=== PATIENT | male | born 1955 | race Caucasian/White ===

== ENCOUNTER 2025-04-01 00:55 | Inpatient (IN) | payer OTHER, SELFPAY ==
[2025-03-31 20:06] VITALS: BP 146/93
[2025-03-31 20:37] LABS: % Basophils 0.3 % (0-2); % Eosinophils 2.6 % (0-6); % Immature Granulocytes 0.5 % (0-0.5); % Lymphocytes 8.9 % (20.5-51.1); % Monocytes 9.4 % (1.7-9.3); % Neutrophils 78.3 % (42.2-75.2); Absolute Eosinophils 0.2 10^3/uL (0-0.7); Absolute Lymphocytes 0.6 10^3/uL (1.2-3.4); Absolute Monocytes 0.6 10^3/uL (0.1-0.6); Absolute Neutrophils 5.1 10^3/uL (1.4-6.5); Hemoglobin 15.3 g/dL (13.0-18.0); Mean Corp Hgb Conc. 36.4 g/dL (33.0-37.0); Mean Corpuscular Hgb 32.3 pg (27.0-31.0); Mean Corpuscular Volume 88.6 fL (80.0-94.0); Mean Platelet Volume 9.8 fL (7.4-10.4); Nucleated Red Blood Cells % 0 % (-); Platelet Count 182 10^3/uL (130-400); Red Blood Cell Count 4.74 10^6/uL (4.70-6.10); Red Cell Dist. Width 12.6 % (11.5-14.5); White Blood Cell Count 6.5 10^3/uL (4.8-10.8)
[2025-03-31 20:54] LABS: COVID-19 Antigen Negative (Negative)
[2025-03-31 20:58] LABS: ALT (SGPT) 29 U/L (0-50); AST (SGOT) 30 U/L (17-59); Albumin 4.6 g/dl (3.5-5.0); Alkaline Phosphatase 54 U/L (38-126); Blood Urea Nitrogen 15 mg/dl (9-20); Calcium 9.4 mg/dl (8.4-10.2); Carbon Dioxide 25 mmol/L (22-30); Chloride 102 mmol/L (98-107); Glucose 129 mg/dl (70-99); Potassium 3.9 mmol/L (3.5-5.1); Sodium 137 mmol/L (135-145); Total Bilirubin 1.4 mg/dl (0.2-1.3); Total Protein 7.2 g/dl (6.3-8.2); eGFR > 60.00
[2025-03-31 21:01] LABS: Troponin I 0.014 ng/ml
[2025-03-31 21:38] VITALS: BP 161/88
[2025-03-31 21:57] VITALS: BMI 31.7
[2025-03-31 22:30] VITALS: BP 161/75
--- NOTE | 2025-03-31 22:32 | ED.CVA ---
History of Present Illness
General
Chief Complaint: CVA/TIA Symptoms
Source: patient and family
Exam Limitations: none
Time Seen by Provider: 03/31/25 22:32
Nursing documentation reviewed up to this point in time: agreed with
Onset of Stroke Symptoms
Onset of symptoms known: No
Time pt last seen normal is known: No
History of Present Illness
History of Present Illness:
Patient to ED for eval after an episode of gait dysfunction and slurred speech this afternoon. States he was at his mothers when symptoms started. States he felt like he was walking as if he were drunk - denies alcohol intake. He then
started walking backwards instead of forwards and could not stop self. He eventually hit a wall and stopped. SOn then reports slurred speech. Symptoms lasted for 'just a few minutes' and then resolved. Brought to ED by family for eval. No prior
history of same.
Past History
Past History
ED Past Medical History: GERD, HTN and Hypercholesterolemia
ED Past Surgical History: Cardiac (aortic valve)
Review of Systems
Review of Systems
Allergies reviewed?: Yes
All Other Systems: ROS reviewed and negative except as documented in HPI and ROS
Constitutional: Reports no symptoms
EENT: Reports no symptoms
Respiratory: Reports no symptoms
Cardiac: Reports no symptoms
ABD/GI: Reports no symptoms
: Reports no symptoms
Musculoskeletal: Reports no symptoms
Skin: Reports no symptoms
Neurological: Reports other (episode of uncoordinated forward gait followed uncontrolled episode of walking backwards, slurred speech.)
Psychiatric: Reports no symptoms
Phy Exam
General Physical Exam
General Presentation: well appearing and no apparent distress
General age: appears stated age
General Skin: warm and dry
General Habitus: normal
General Mental: alert
General Hydration: appears well hydrated
Cardiovascular Exam
Cardiovascular Exam: regular rate/rhythm and no edema
Pulmonary Exam
Pulmonary Exam: lungs clear, no respiratory distress and chest non tender
Neurological Exam
Neurological Exam: alert, oriented x3 and CN II-XII intact
NIH Stroke Score
Level of Consciousness: 0 - Alert
LOC questions: 0-Answers both correctly
LOC Commands: 0-Performs both correctly
Best Gaze: 0-Normal
Visual Carranza: 0=Normal, no visual loss
Facial palsy: 0=Normal, symmetrical
Motor - Right Arm: 0=No drift 10 seconds
Motor - Left Arm: 0=No drift 10 seconds
Motor - Right Le-No drift 5 seconds
Motor - Left Le-No drift 5 seconds
Limb Ataxia: 0-Absent
Sensation: 0-Normal
Best Language: 0-No aphasia
Dysarthria: 0-Normal
Extinction and Inattention: 0-No abnormality
Total Score:: 0
Musculoskeletal Exam
Musculoskeletal Exam: full ROM and neuro vasc intact
Skin Exam
Skin Exam: normal color, warm/dry and no rash
Psychiatric Exam
Psychiatric Exam: normal mood/affect
Course
Orders/Labs/Results
Orders:
Orders
03/31/25 20:10
Electrocardiogram (*1) Urgent
Reason for Study: Vertigo / Dizzy
EKG- Treatment ONCE
03/31/25 20:23
COVID-19 Antigen Urgent
Source: Nasal Swab
Complete Blood Count/With Diff Urgent
Comprehensive Metabolic Panel Urgent
PT/INR [Prothrombin Time] Urgent
Is patient on Coumadin/Warfarin?: No
Comment: [email or web address]
Troponin I Urgent
Influenza A+B Rapid Molecular Urgent
GENE Source: Nasal Swab
Specimen Description:
03/31/25 20:[address] [CT Head W/o Iv Contrast] Urgent
Comment:
Reason For Exam: balance issue
03/31/25 23:00
Flush (0.9% Sodium Chloride) [Flush (Nss)] See Dose Instructions IV PER PROTOCOL
03/31/25 23:01
NEUROLOGY CONSULT Urgent
Consulting Provider: Alonzo Alfaro
Was physician already notified: Yes
04/01/25 00:10
CXR2 [CR Chest - 2 Views ] Urgent
Comment:
Reason For Exam: Fever, Cough
04/01/25 00:18
Warfarin [Coumadin] 10 mg PO NOW STA
04/01/25 00:30
Blood Culture Q30M
GENE Source: Blood/Venous
Specimen Description:
04/01/25 00:31
Acetaminophen [Tylenol] 650 mg PO NOW STA
04/01/25 00:32
0.9% Sodium Chloride 1000 ml [Nss] 1,000 ml IV BOLUS
04/01/25 00:36
Admit/Transfer Patient As Directed
Co-Sign Provider:
Level of Care: Inpatient admission
Assign to:: Telemetry
Physician / Group: Deven
Diagnosis: Pneumonia, Ataxia
Reason for Telemetry: Arrhythmia
Date to Stop Telemetry: 04/04/25
Time to Stop Telemetry: 11:00
Reason for Hospitalization: Pneumonia, Ataxia
Expected length of stay greater than two midnights?: Yes
ELOS- Estimated Length of Stay in days: 3
I certify the patient meets the requirements for IP care: Yes
CefTRIAXone [Rocephin] 1,000 mg IV NOW STA
Doxycycline [Vibramycin] 100 mg PO NOW STA
04/01/25 00:37
PRN Pain Medication Management As Directed
May give lesser potent ordered pain med per pt: Yes
preference::
Protocol:: Medication orders for pain may be administered in a
manner that supports deferring to patient preference
when the pt is:
- Requesting an ordered lesser potent pain medication.
Least to most potent pain medications are defined
as: acetaminophen < NSAID < tramadol < opioids
(morphine, oxycodone, hydromorphone).
- Requesting a lesser dose of the same medication IF
ORDERED.
- Requesting a less intrusive route of administration
if both routes are prescribed by the provider (PO <
IV).
04/01/25 00:38
Code Status As Directed
Resuscitation Status: Full Code
Sterile Water [Sterile Water For Injection] 10 ml IV NOW STA
04/01/25 00:39
Lactic Acid Urgent
Urinalysis Reflex To Culture Routine
Date Specimen was Collected: 04/01/25
Time Specimen was Collected: 00:30
Blood Culture Q30M
GENE Source: Blood/Venous
Specimen Description:
04/04/25 11:00
DC Protocol for Telemetry ONCE
Abnormal Lab Results
03/31/25
20:23
MCH 32.3 H pg
(27.0-31.0)
Absolute Lymphs (auto) 0.6 L 10^3/uL
(1.2-3.4)
Neutrophils % 78.3 H %
(42.2-75.2)
Lymphocytes % 8.9 L %
(20.5-51.1)
Monocytes % 9.4 H %
(1.7-9.3)
PT 21.0 H Sec
(11.4-14.6)
Glucose 129 H mg/dl
(70-99)
Total Bilirubin 1.4 H mg/dl
(0.2-1.3)
03/31/25 20:23
03/31/25 20:23
Vital Signs
Initial and Last Documented VS:
Initial Vital Signs
Temp Pulse Resp BP Pulse Ox
100.3 F 55 16 146/93 94
03/31/25 20:06 03/31/25 20:06 03/31/25 20:06 03/31/25 20:06 03/31/25 20:06
Last Documented Vital Signs
Temp Pulse Resp BP Pulse Ox
101.3 F H 93 23 147/79 94
04/01/25 00:29 04/01/25 00:15 04/01/25 00:15 04/01/25 00:00 04/01/25 00:15
*Radiology
Radiology exam reviewed: radiology read reviewed
*Pulse Oximetry
Patient hypoxic: no
*Critical Care Note
Total Time (30-74mins, 75-104mins- exclusive of procedures): Not Applicable
ED Attending Note
-
Portions of this chart may have been created with voice recognition software.� Occasional wrong word or��sound alike� substitutions may have occurred due to the inherent limitations of voice recognition software.
Discharge Plan
Departure
Patient Disposition: Admit
Date of Disposition: 03/31/25
Time of Disposition: 23:00
Presentation/result/management discussed w/ accepting MD/DO: Hospitalist
Patient with high blood pressure during this ER visit?: No
Condition: Fair
Covid-19: Not Applicable
Discharge Problem:
TIA (transient ischemic attack)
Prescriptions:
No Action
carvedilol 3.125 mg Tablet
3.125 mg PO BID
losartan-hydrochlorothiazide 100-25 mg Tablet
1 tab PO DAILY
pantoprazole [Protonix] 40 mg Tablet,Delayed Release (Dr/Ec)
40 mg PO DAILY
warfarin 5 mg Tablet
10 mg PO DAILY
Rx Instructions:
Sundays, Tuesdays, take 2 tablets that equal 10mg.
Mondays, Wednesdays, Fridays, and Saturdays take 1.5 tablets that equals 7.5mg
finasteride 5 mg Tablet
5 mg PO DAILY
ezetimibe 10 mg Tablet
10 mg PO DAILY
silodosin 8 mg Capsule
8 mg PO DAILY
omega 0-mno-jyh-fish oil [Fish Oil] 300-1,000 mg Capsule
1 cap PO DAILY
Interventions
Interventions:
*Risk Screen - Suicide Last Done: 03/31/25 21:58
*General Assessment Last Done: 03/31/25 21:58
*Neglect/Abuse Screening Last Done: 03/31/25 21:58
*ED COVID-19 Vaccine History Last Done: 03/31/25 21:58
ED- Pulmonary Assessment Last Done: 03/31/25 22:05
ED- Neurological Assessment Last Done: 03/31/25 23:00
ED- Cardiac Assessment Last Done: 03/31/25 22:05
ED Swallowing Screen Last Done: 03/31/25 23:54
Discharge Date and Time
Print Language: TAJIK
[2025-03-31 23:00] VITALS: BP 152/74
[2025-04-01] VITALS (13 sets, daily range): BP systolic 110–147; BP diastolic 61–85; PULSE 48–100; BMI 30.9; BMI 30.6
--- NOTE | 2025-04-01 00:19 | HPS.HSE ---
Family Physician
-
Family Physician: NOT KNOW UNKNOWN - PT DOES
Chief Complaint
-
Ataxia
History of Present Illness
Patient is a 69y M with PMH significant for hypertension, mechanical AVR and spinal stenosis who presents to ED complaining of ataxia. History obtained from patient and family at the bedside. Patient states that he was at his mother's
this afternoon when he noted that he was unsteady on his feet. He was stumbling around but did not fall. At the medical reception, he states that he lost his balance and ended up 'walking backwards' until he struck a wall and slid down. He denies
striking his head through family members believe that he may have. No LOC. Patient was given some water and crackers. He attended dinner following that and ate well.
After dinner, patient was noted to still be quite unsteady on his feet. Family also appreciated some slurring of his speech at that point.
He was brought to the ED for further evaluation.
On further discussion, ataxia / unsteadiness was noted by family as early as 9 AM today - though not much was thought about it at the time.
In the ED, family feels that his speech is back to baseline.
Patient denies any prior history of NC, CVA, etc.
Patient is noted to have cough during exam. He states that he has had dry, non-productive cough for the past 2 days or so. No fever / chills. No dyspnea.
Medical History
Past Medical History
Past Medical History: Reports Other
Additional Past Medical History:
Mechanical AVR
Hypertension
Dyslipidemia
Borderline DM-II
History of GI Bleeding
KIANNA - Intolerant of CPAP
Cervical / Lumbar Spinal Stenosis
BPH
Past Surgical History: Reports Other
Additional Past Surgical History:
Left Carpal Tunnel Release (3 weeks ago)
Right Foot ORIF
Septoplasty
Hernia Repair
Mechanical AVR
Social History
Tobacco: Non-smoker
Alcohol: None
Drug: None
Family History
Family History: Other (Father: CAD Brother x 4: CAD)
Allergies / Home Medications
Allergies reflects when Allergies were last updated in [facility].
Home Medications with original date entered in [facility]
Allergy/Medication List:
Allergies
Allergy/AdvReac Type Severity Reaction Status Date / Time
lisinopril Allergy Unknown Verified 03/31/25 20:13
Home Medications
carvedilol 3.125 mg tablet 3.125 mg PO BID 03/31/25
ezetimibe 10 mg tablet 10 mg PO DAILY 03/31/25
finasteride 5 mg tablet 5 mg PO DAILY 03/31/25
losartan 100 mg-hydrochlorothiazide 25 mg tablet 1 tab PO DAILY 03/31/25
omega 9-ijj-pcy-fish oil 300 mg-1,000 mg capsule (Fish Oil) 1 cap PO DAILY 03/31/25
pantoprazole 40 mg tablet,delayed release (Protonix) 40 mg PO DAILY 03/31/25
silodosin 8 mg capsule 8 mg PO DAILY 03/31/25
warfarin 5 mg tablet 10 mg PO DAILY 03/31/25
Review of Systems
-
History Source: Patient and Family
A 12 point ROS was completed and negative except as noted: Yes
Constitutional: Denies Fever or Chills
Respiratory: Reports Cough; Denies Trouble Breathing
Cardiac: Denies Chest Pain or Palpitations
Abdomen/GI: Denies Abdominal Pain, Nausea, Vomiting or Diarrhea
: Denies Dysuria or Frequency
Musculoskeletal: Denies Joint Pain or Edema
Neurological: Reports Other (Ataxia); Denies Dizzy or Headache
Psych: Denies Depression or Anxiety
Physical Exam
Vital Signs
Vital Signs
Temp Pulse Resp BP Pulse Ox
100.3 F 103 18 147/79 95
03/31/25 20:06 04/01/25 00:00 04/01/25 00:00 04/01/25 00:00 04/01/25 00:00
Physical Exam
General: Other (69y M in no acute distress. Tactile fever.)
HEENT: Moist mucous membranes and PERRLA
Respiratory: Clear; No Wheezes, Rales or Rhonchi
Cardiac: S1/S2 (crisp mechanical S2) and Regular Rhythm (with ectopy.); No Murmur
GI: Soft, Non Tender, Non Distended and Normal Bowel Sounds
Musculoskeletal: No Clubbing, No Cyanosis and No Edema
Neuro: AO x 3
Laboratory Results
-
03/31/25 20:23
03/31/25 20:23
Laboratory Results
PT 21.0 Sec (11.4-14.6) H 03/31/25 20:23
INR 1.80 03/31/25 20:23
Total Bilirubin 1.4 mg/dl (0.2-1.3) H 03/31/25 20:23
AST 30 U/L (17-59) 03/31/25 20:23
ALT 29 U/L (0-50) 03/31/25 20:23
Alkaline Phosphatase 54 U/L (38-126) 03/31/25 20:23
Troponin I 0.014 ng/ml 03/31/25 20:23
Impression/Plan
-
A/P: Patient is a 69y M with PMH significant for hypertension, mechanical AVR and spinal stenosis who presents to ED for evaluation of ataxia throughout the day today.
Ataxia
- Admit for further evaluation and treatment.
- ? CVA / TIA versus secondary to infectious process / weakness.
- Neuro exam unremarkable at present. CT head with some hypoattenuation which appears advanced for his age.
- Follow serial neuro exams overnight.
- MRI in AM. Neuro evaluation if any significant abnormality.
- PT / OT evaluations.
- Treat infectious process as noted below.
Fever / Cough
- Patient with cough during exam. Initial temp = 100.3 and increased to 101.3.
- No focal complaints other than cough.
- Check blood cultures given AVR. Note recent surgery (L carpal tunnel 3 weeks ago).
- Cover with abx for CAP for now (though CXR is unremarkable).
- COVID / influenza negative in the ED.
- Follow-up culture data. Follow fever curve. Follow for any new / worsening symptoms.
Mechanical AVR
- Continue Coumadin.
- Follow daily INR and adjust dose as needed.
- Check Echo given fever.
Benign Hypertension
- Continue current med regimen with holding parameters.
Borderline DM
- Follow glucose and cover with SSI as needed.
- Check A1C.
Spinal Stenosis
- PT / OT evals as noted above.
- No complaints of significant back pain or neck pain at present.
DVT Prophylaxis: On Coumadin
Code Status: Full
[2025-04-01] MEDS: COUMADIN 10 MG PO ×2 (00:38→17:23)
[2025-04-01] MEDS: TYLENOL 650 MG PO ×3 (00:42→18:16)
[2025-04-01] MEDS: NSS 1000 IV ×3 (00:44→16:02)
[2025-04-01 01:01] LABS: Lactic Acid 1.7 mmol/L (0.7-2.0)
[2025-04-01 01:16] LABS: Urine Albumin Negative (Neg - Trace); Urine Bilirubin Negative (Negative); Urine Character Clear (Clear); Urine Color Straw; Urine Glucose Negative (Negative); Urine Ketone Negative (Negative); Urine Leukocyte Negative (Negative); Urine Nitrite Negative (Negative); Urine Occult Blood Negative (Negative); Urine Urobilinogen Negative (Neg - 1+)
[2025-04-01] MEDS: ROCEPHIN 1000 MG IV (01:21)
[2025-04-01] MEDS: VIBRAMYCIN 100 MG PO ×2 (01:21→19:58)
[2025-04-01] MEDS: STERILE WATER FOR INJECTION 10 ML IV (01:21)
--- NOTE | 2025-04-01 02:19 | PTCARENOTE ---
Pt received from ED via stretcher at 0215. Pt pleasant, AAOx3, VSS, and able to ambulate into room with assistance. Bed alarm placed and plugged in. Pt absent of pain. Pt receptive to room and call green. Pt bed in lowest position and call green
within reach. Pt educated on importance of call green usage, pt relays understanding and cooperation. Will continue with current plan of care.
[2025-04-01 02:31] LABS: Glucose - Point of Care 122 mg/dl (70-99)
--- NOTE | 2025-04-01 06:59 | W.PN.HOSP.TC ---
Addendum entered and electronically signed by Yaron Hamilton MD 04/01/25 19:51:
Attending Addendum-
I saw and evaluated the patient. I reviewed the resident�s note and agree with findings and plan as documented in the resident�s note. Sub: seen with family present. Still feels weak. States he gets dizzy when standing. Was febrile overnight.
Complains of cough. Full 12 point ROS reviewed and negative except as documented Exam: Vitals reviewed in chart GEN-NAD heart crisp click @ RUSB lungs rhonchi RLL abd soft LE no edema Neuro AAO x 3 MS 03/02
Plan:
#Ataxia
- Neuro exam unremarkable at present. CT head with some hypoattenuation which appears advanced for his age.
- Follow serial neuro exams
- recent emotional event-mother
- MRI 04/01- No MRI evidence for an acute infarct.
Moderate to advanced bilateral cerebral white matter signal alteration
- sxs described as retropulsion possible Parkinson?
- start Sinemet trial
-PT / OT evaluations.
# Sepsis secondary to RLL PNA
- CAP
- cont Rocephin/doxy x 7 days
- COVID / influenza negative in the ED.
- Follow-up culture data. Follow fever curve. Follow for any new / worsening symptoms.
#Mechanical AVR with subtherapeutic INR
- Continue Coumadin.
- start Lovenox bridge jose- ok with neuro
- INR daily theru INR 2-3
- recently held coumadin for carpal tunnel surgery
- Check Echo 04/01-Left ventricular ejection fraction is 55-60% by volumetric assessment.
-Well seated mechanical aortic valve replacement. Peak/mean gradients across the aortic valve are 20/14 mmHg, respectively. No aortic regurgitation is seen.
#Benign Hypertension
-stable monitor continue losartan and coreg
#Borderline DM
- Follow glucose and cover with SSI as needed.
#Spinal Stenosis
- PT / OT evals as noted above.
- No complaints of significant back pain or neck pain at present.
#HLD- cont zetia
#GERD- cont Protonix
DVT Prophylaxis: On Coumadin
Code Status: Full
Dispo DC home in am
ACP
Patient consented to discuss, was with daughters x 3, time spent explanation of advance directives, changes in health status, patient�s health care wishes if the patient becomes unable to make health decisions, goals of care, code status, and
prognosis- 16 minutes
Time spent coordinating care, review of plan of care with resident, personally reviewed previous records in EMR, med rec, labs, radiology, d/w nursing, family total time documented is exclusive of any additional time listed that was spent in advance
care planning discussion -�51 minutes
Original Note:
Today's Communication/Plan
-
Continue ceftriaxone doxycycline
Lovenox bridge
Assessment / Plan
Assessment / Plan
69y M with PMH significant for hypertension, mechanical AVR and spinal stenosis who presents to ED for evaluation of ataxia.
Plan
#Ataxia
Possibly CVA versus cerebellar pathology
Patient had ataxia, dysarthria�both back to baseline now.
CT�no evidence of acute infarct.
MRI brain� No MRI evidence for an acute infarct.
Moderate to advanced bilateral cerebral white matter signal alteration. Differential considerations include chronic microangiopathic ischemia, demyelination, vasculitis, Lyme disease, or sequela of migraine headaches, among other etiologies.
Neurology on board
Recommend starting the patient on Sinemet, as retropulsion is a symptom of Parkinson's.
PT/OT consult
Orthostatic vitals
#Sepsis secondary to pneumonia
Patient was febrile at presentation, Tmax 101.3
Had an episode in the morning today
Tachycardic, tachypneic
Chest x-ray�evidence of right lower lobe pneumonia
Blood culture pending
Patient started on ceftriaxone and doxycycline�continue
Monitor fever curve
Trend white count
No evidence of infective endocarditis�echo�Normal left ventricular chamber size. Normal left ventricular systolic
function. Normal regional wall motion. Left ventricular ejection fraction is
55-60% by volumetric assessment. Mild concentric left ventricular hypertrophy.
Normal diastolic function.
Normal right ventricular size and function.
Well seated mechanical aortic valve replacement. Peak/mean gradients across the
aortic valve are 20/14 mmHg, respectively. No aortic regurgitation is seen.
#Mechanical aortic valve
On Coumadin
Subtherapeutic INR
Will do Lovenox bridge
#Essential hypertension
Continue losartan, carvedilol
DVT prophylaxis�Coumadin
Full code
Anticipated Discharge: 24 - 48 hours
Subjective/Interval History
-
Date of Service: April 01, 2025
Patient family at bedside, his speech is at baseline.
He has productive cough, producing brown sputum.
Objective Data
-
Labs:
Laboratory Results
03/31/25 04/01/25
20:23 06:00
WBC 6.5 Pending
Hgb 15.3 Pending
Hct 42.0 Pending
Plt Count 182 Pending
PT 21.0 H Pending
INR 1.80 Pending
Sodium 137 Pending
Potassium 3.9 Pending
Chloride 102 Pending
Carbon Dioxide 25 Pending
BUN 15 Pending
Creatinine 1.1 Pending
Glucose 129 H Pending
Calcium 9.4 Pending
Total Bilirubin 1.4 H
AST 30
ALT 29
Alkaline Phosphatase 54
Vital Signs:
Vital Signs
Temp Pulse Resp BP Pulse Ox
99.3 F 98 16 133/79 92
04/01/25 02:33 04/01/25 02:33 04/01/25 02:33 04/01/25 02:33 04/01/25 02:33
I&O
06/02/25 06/03/25 06/04/25
06:59 06:59 06:59
Intake Total 400 / 400
Balance 400 / 400
Physical Exam
-
General: Well Developed, Well Nourished and No Apparent Distress
HEENT: Normocephalic and Atraumatic
Respiratory: Clear to Auscultation
Cardiac: Regular Rhythm, S1/S2 and Other (Mechanical valve click)
GI: Soft, Nontender, Nondistended and Normal Bowel Sounds
Skin: Warm and Dry
Neuro: Awake, Alert, Oriented, AO x 3, Central Nerve's Intact, No Sensory Deficits and DTR's Intact & Symmetrica
Psych: Calm
[2025-04-01 07:32] LABS: Glucose - Point of Care 117 mg/dl (70-99)
[2025-04-01 07:58] LABS: Hematocrit 41.3 % (39.0-52.0); Hemoglobin 14.5 g/dL (13.0-18.0); Mean Corp Hgb Conc. 35.1 g/dL (33.0-37.0); Mean Corpuscular Hgb 31.7 pg (27.0-31.0); Mean Corpuscular Volume 90.4 fL (80.0-94.0); Mean Platelet Volume 9.6 fL (7.4-10.4); Platelet Count 157 10^3/uL (130-400); Red Blood Cell Count 4.57 10^6/uL (4.70-6.10); Red Cell Dist. Width 12.8 % (11.5-14.5); White Blood Cell Count 5.8 10^3/uL (4.8-10.8)
[2025-04-01] MEDS: NOVOLOG FLEXPEN-LOW RESISTANCE SC (08:00)
[2025-04-01 08:01] LABS: INR 1.58; PT 19.4 Sec (11.4-14.6)
[2025-04-01] MEDS: PROTONIX 40 MG PO (08:03)
[2025-04-01] MEDS: ZETIA 10 MG PO (08:04)
[2025-04-01] MEDS: PROSCAR 5 MG PO (08:05)
[2025-04-01] MEDS: COZAAR 50 MG PO (08:05)
[2025-04-01] MEDS: COREG 3.125 MG PO ×2 (08:05→19:58)
[2025-04-01 08:24] LABS: Glycohemoglobin (HgbA1c) 6.2 % (4.0-5.6)
[2025-04-01 08:50] LABS: Blood Urea Nitrogen 15 mg/dl (9-20); Calcium 8.8 mg/dl (8.4-10.2); Carbon Dioxide 26 mmol/L (22-30); Chloride 107 mmol/L (98-107); Estimated Creatinine Clearance 90 ml/min; Glucose 112 mg/dl (70-99); HDL Cholesterol 27 mg/dl; LDL Cholesterol, Calculated 116 mg/dl; Potassium 3.7 mmol/L (3.5-5.1); Sodium 139 mmol/L (135-145); Total Cholesterol 166 mg/dl (50-199); Triglyceride 119 mg/dl (10-149); Very Low Density Lipoprotein 23 mg/dl (0-30); eGFR > 60.00
[2025-04-01 08:55] LABS: TSH Reflex To Free T4 1.29 uIU/ml (0.47-4.68)
[2025-04-01 13:08] LABS: Glucose - Point of Care 154 mg/dl (70-99)
--- NOTE | 2025-04-01 14:57 | CM ---
Patient seen bedside, initial assessment completed. Patient is a 69y M with PMH significant for hypertension, mechanical AVR and spinal stenosis who presents to ED complaining of ataxia.
Patient resides in [place], [place] w/ spouse. Patient visiting [place] for his mother's that just passed. Patient is staying at his brother's home in [place], [place]. Brother's home is a [address], 3 steps to enter. Patient is independent in all areas, no
DME. Patient drives. No SNF/HC hx reported.
Address, point of contact and insurance verified
PCP: Mango Banegas
No pharmacy listed as patient is out of state resident
Brother's address is [address], [place] [address]
PT assessed, no skilled needs likely at d/c
Plan: D/c to brother's home, no needs
[2025-04-01] MEDS: NOVOLOG FLEXPEN-LOW RESISTANCE 1 UNITS SC ×2 (16:02→17:22)
--- NOTE | 2025-04-01 16:19 | CON.NEURO ---
Neuro Assessment/Plan
Assessment
MRI brain imgs and rept rev'd moderate/advanced microvascular changes
retropulsion is a symptom of neurodegenerative disease, in this case Parkinson's
start Sinemet 25/100 AC absorbs better on empty stomach
discussed that he should follow up with parkinson's specialist when he gets home and consider DBS implant
mechanical AVR, Low INR 1.5 - ok for Lovenox bridge; Evidence is against bridging in afib (NEJ 2014 bridge study) but I'm not aware for mechanical valve.
can d/c home from neuro perspective
Consultation
Order
Date of Consultation: 04/01/25
Requesting Provider: Derick Carvalho
Reason for Consult: ataxia
Subjective/Objective
Subjective Data
Date of Service: April 01, 2025
from h&p:
Patient is a 69y M with PMH significant for hypertension, mechanical AVR and spinal stenosis who presents to ED complaining of ataxia. History obtained from patient and family at the bedside. Patient states that he was at his mother's
this afternoon when he noted that he was unsteady on his feet. He was stumbling around but did not fall. At the office manager receptionist, he states that he lost his balance and ended up 'walking backwards' until he struck a wall and slid down. He denies
striking his head through family members believe that he may have. No LOC. Patient was given some water and crackers. He attended dinner following that and ate well.
After dinner, patient was noted to still be quite unsteady on his feet. Family also appreciated some slurring of his speech at that point.
He was brought to the ED for further evaluation.
On further discussion, ataxia / unsteadiness was noted by family as early as 9 AM today - though not much was thought about it at the time.
In the ED, family feels that his speech is back to baseline.
Patient denies any prior history of IA, CVA, etc.
Patient is noted to have cough during exam. He states that he has had dry, non-productive cough for the past 2 days or so. No fever / chills. No dyspnea.
he denies any slow/soft/slurred speech prior to cough; no tremor, no handwriting changes, no gait changes prior to this. visiting from [place] for
Objective Data
Vital Signs
Temp Pulse Resp BP Pulse Ox
36.5 C 87 16 140/75 93
04/01/25 11:13 04/01/25 07:10 04/01/25 07:10 04/01/25 07:10 04/01/25 07:10
Lab Results
04/01/25 07:27
04/01/25 07:27
PT 19.4 Sec (11.4-14.6) H 04/01/25 07:27
INR 1.58 04/01/25 07:27
Sodium 139 mmol/L (135-145) 04/01/25 07:27
Potassium 3.7 mmol/L (3.5-5.1) 04/01/25 07:27
BUN 15 mg/dl (9-20) 04/01/25 07:27
Glucose 112 mg/dl (70-99) H 04/01/25 07:27
Calcium 8.8 mg/dl (8.4-10.2) 04/01/25 07:27
LDL Cholesterol, Calc 116 mg/dl 04/01/25 07:27
Patient Allergies
lisinopril Allergy (Verified 03/31/25 20:13)
Unknown
Physical Exam
-
AAOx3, speech soft/clear
masked fascies
full strength
+bradykinesia, cogwheel rigidity
Medications
-
Active Medications
Generic Name Dose Route Start Last Admin
Trade Name Freq PRN Reason Stop Dose Admin
Acetaminophen 650 mg 04/01/25 02:15 04/01/25 08:00
Acetaminophen 325 Mg Tablet PO 04/29/25 02:14 650 mg
Q4HPRN PRN Administration
Mild Pain / Temp > 101
Albuterol Sulfate 2.5 mg 04/01/25 02:15
Albuterol Nebs 2.5 Mg/3 Ml Ampul INH
R Q4HPRN PRN
SOB
Protocol
Carvedilol 3.125 mg 04/01/25 08:00 04/01/25 08:05
Carvedilol 3.125 Mg Tablet PO 04/29/25 07:59 3.125 mg
BID FOREIGN Administration
Ceftriaxone Sodium 1,000 mg 04/02/25 00:00
Ceftriaxone 1000 Mg / 10 Ml Vial IV
Q24H FOREIGN
Dextrose 12.5 grams 04/01/25 02:15
Dextrose 50% (0.5 Grams/Ml) 50 Ml Syringe IV 04/29/25 02:14
[id number] PRN
hypoglycemia
Protocol
Doxycycline Hyclate 100 mg 04/01/25 20:00
Doxycycline 100 Mg Capsule PO
Q12 FOREIGN
Ezetimibe 10 mg 04/01/25 08:00 04/01/25 08:04
Ezetimibe (Zetia) 10 Mg Tablet PO 04/29/25 07:59 10 mg
DAILY FOREIGN Administration
Finasteride 5 mg 04/01/25 08:00 04/01/25 08:05
Finasteride 5 Mg Tablet PO 04/29/25 07:59 5 mg
DAILY FOREIGN Administration
Glucagon 1 mg 04/01/25 02:15
Glucagon 1 Mg Vial IM 04/29/25 02:14
PRN PRN
hypoglycemia
Protocol
Sodium Chloride 1,000 mls @ 100 mls/hr 04/01/25 02:15 04/01/25 16:02
Nss IV 1,000 mls
.Q10H FOREIGN Administration
Insulin Aspart 0 units 04/01/25 07:30 04/01/25 16:02
Insulin Aspart Low Resistance 300 Units/3 Ml Pen.Injctr SC 04/29/25 07:29 1 units
AC FOREIGN Administration
Protocol
Losartan Potassium 50 mg 04/01/25 08:00 04/01/25 08:05
Losartan 50 Mg Tablet PO 04/29/25 07:59 50 mg
DAILY FOREIGN Administration
Pantoprazole Sodium 40 mg 04/01/25 08:00 04/01/25 08:03
Pantoprazole 40 Mg Delayed Release Tablet PO 04/29/25 07:59 40 mg
DAILY FOREIGN Administration
Sodium Chloride 0 flush 03/31/25 23:00
Sodium Chloride 0.9% (Flush) Syringe IV 04/28/25 22:59
PER PROTOCOL FOREIGN
Sterile Water 10 ml 04/02/25 00:00
Sterile Water For Injection 10 Ml Vial IV 04/30/25 00:00
Q24H FOREIGN
Warfarin Sodium 10 mg 04/01/25 18:00
Warfarin 10 Mg Tablet PO 04/06/25 17:59
QPM FOREIGN
Home Medications
�Medication �Instructions �Recorded
carvedilol 3.125 mg tablet 3.125 mg PO BID 03/31/25
ezetimibe 10 mg tablet 10 mg PO DAILY 03/31/25
finasteride 5 mg tablet 5 mg PO DAILY 03/31/25
losartan 100 1 tab PO DAILY 03/31/25
mg-hydrochlorothiazide 25 mg tablet
omega 4-cia-wcm-fish oil 300 1 cap PO DAILY 03/31/25
mg-1,000 mg capsule (Fish Oil)
pantoprazole 40 mg tablet,delayed 40 mg PO DAILY 03/31/25
release (Protonix)
silodosin 8 mg capsule 8 mg PO DAILY 03/31/25
warfarin 5 mg tablet 10 mg PO DAILY 03/31/25
[2025-04-01 17:13] LABS: Glucose - Point of Care 154 mg/dl (70-99)
[2025-04-01] MEDS: SINEMET 25-100 1 TABLET PO (17:23)
[2025-04-01] MEDS: LOVENOX 100 MG SC (19:59)
[2025-04-01 21:00] LABS: Glucose - Point of Care 184 mg/dl (70-99)
[2025-04-02] MEDS: STERILE WATER FOR INJECTION 10 ML IV (00:58)
[2025-04-02] MEDS: ROCEPHIN 1000 MG IV (00:58)
[2025-04-02] MEDS: NSS 1000 IV (01:47)
[2025-04-02 03:18] VITALS: BP 127/81
[2025-04-02 06:00] VITALS: BMI 30.7
--- NOTE | 2025-04-02 06:58 | W.PN.HOSP.TC ---
Addendum entered and electronically signed by Yaron Hamilton MD 04/02/25 20:48:
Attending Addendum-
I saw and evaluated the patient. I reviewed the resident�s note and agree with findings and plan as documented in the resident�s note. Sub: seen with family present. feels improved. less weak. not dizzy when standing. cought improved. Full 12
point ROS reviewed and negative except as documented Exam: Vitals reviewed in chart GEN-NAD heart crisp click @ RUSB lungs rhonchi RLL abd soft LE no edema Neuro AAO x 3 MS 03/02
Plan:
#Ataxia
- Neuro exam unremarkable at present. CT head with some hypoattenuation which appears advanced for his age.
- Follow serial neuro exams
- recent emotional event-mother
- MRI 04/01- No MRI evidence for an acute infarct.
Moderate to advanced bilateral cerebral white matter signal alteration
- sxs described as retropulsion possible Parkinson?
- start Sinemet trial - sxs improved!
-PT / OT evaluations- home with HC
# Sepsis secondary to RLL PNA
- CAP
-resolving
- Rocephin/doxy-> PO x 7 days total
#Mechanical AVR with subtherapeutic INR
- Continue Coumadin.
- cont Lovenox bridge
- INR daily theru INR 2-3
- recently held coumadin for carpal tunnel surgery
- Check Echo 04/01-Left ventricular ejection fraction is 55-60% by volumetric assessment.
-Well seated mechanical aortic valve replacement. Peak/mean gradients across the aortic valve are 20/14 mmHg, respectively. No aortic regurgitation is seen.
DC on lovenox bridge STRICT instructions given, patient going to travel 20 hours via car back home today. advised against until plan in place and medication picked up as prescribed
#Benign Hypertension
-stable monitor continue losartan and coreg
#Borderline DM
- Follow glucose and cover with SSI as needed.
#Spinal Stenosis
- PT / OT evals as noted above.
- No complaints of significant back pain or neck pain at present.
#HLD- cont zetia
#GERD- cont Protonix
DVT Prophylaxis: On Coumadin
Code Status: Full
Dispo DC home with strict instructions on new meds and f/u with PCP
Time spent coordinating care, DC planning, review of DC plan of care with resident, transition of care, review of records, med rec/scripts sent electronically, consults, notes, d/w consultants, nursing, family, and CM� 35 mins
Original Note:
Today's Communication/Plan
-
Discharge home
Assessment / Plan
Assessment / Plan
69y M with PMH significant for hypertension, mechanical AVR and spinal stenosis who presents to ED for evaluation of ataxia.
Plan
#Ataxia
Possibly CVA versus cerebellar pathology
Patient had ataxia, dysarthria�both back to baseline now.
CT�no evidence of acute infarct.
MRI brain� No MRI evidence for an acute infarct.
Moderate to advanced bilateral cerebral white matter signal alteration. Differential considerations include chronic microangiopathic ischemia, demyelination, vasculitis, Lyme disease, or sequela of migraine headaches, among other etiologies.
Neurology on board
Recommend starting the patient on Sinemet, as retropulsion is a symptom of Parkinson's.
Continue Sinemet
PT/OT consult�recommend home
Orthostatic vitals
#Sepsis secondary to pneumonia
Patient was febrile at presentation, Tmax 101.3
Had an episode in the morning today
Tachycardic, tachypneic
Chest x-ray�evidence of right lower lobe pneumonia
Blood culture pending
Continue cefdinir, doxycycline at discharge.
Monitor fever curve
Trend white count
No evidence of infective endocarditis�echo�Normal left ventricular chamber size. Normal left ventricular systolic
function. Normal regional wall motion. Left ventricular ejection fraction is
55-60% by volumetric assessment. Mild concentric left ventricular hypertrophy.
Normal diastolic function.
Normal right ventricular size and function.
Well seated mechanical aortic valve replacement. Peak/mean gradients across the
aortic valve are 20/14 mmHg, respectively. No aortic regurgitation is seen.
#Mechanical aortic valve
On Coumadin
Subtherapeutic INR
Will do Lovenox bridge
Lovenox�100 mg, twice daily.
Repeat INR�1.73, adjust warfarin dose at discharge as below
Sundays, Tuesdays, , Fridays, Saturdays�10 mg
Mondays, Wednesdays�7.5 mg.
#Essential hypertension
Continue losartan, carvedilol
DVT prophylaxis�Coumadin, Lovenox
Full code
Anticipated Discharge: Today
Subjective/Interval History
-
Date of Service: April 02, 2025
Objective Data
-
Labs:
Laboratory Results
04/02/25
06:22
WBC Pending
Hgb Pending
Hct Pending
Plt Count Pending
PT Pending
INR Pending
Sodium Pending
Potassium Pending
Chloride Pending
Carbon Dioxide Pending
BUN Pending
Creatinine Pending
Glucose Pending
Calcium Pending
Total Bilirubin Pending
AST Pending
ALT Pending
Alkaline Phosphatase Pending
Vital Signs:
Vital Signs
Temp Pulse Resp BP Pulse Ox
98.4 F 62 14 127/81 94
04/02/25 03:18 04/02/25 03:18 04/02/25 03:18 04/02/25 03:18 04/02/25 03:18
I&O
03/31/25 04/01/25 04/02/25
06:59 06:59 06:59
Intake Total 400 / 400 2680 / 2680
Balance 400 / 400 2680 / 2680
Physical Exam
-
General: Well Developed and Well Nourished
HEENT: Normocephalic and Atraumatic
Respiratory: Clear to Auscultation
Cardiac: Regular Rhythm and S1/S2
GI: Soft, Nontender, Nondistended and Normal Bowel Sounds
Skin: Warm and Dry
Neuro: Awake, Alert, Oriented, AO x 3, Nonfocal/Grossly Intact, Central Nerve's Intact and No Sensory Deficits
Psych: Calm
[2025-04-02 07:00] VITALS: BP 131/86; BP 132/92; BP 133/80; PULSE 66; PULSE 78; PULSE 79
[2025-04-02 07:43] LABS: Glucose - Point of Care 105 mg/dl (70-99)
[2025-04-02 07:44] LABS: % Basophils 0.7 % (0-2); % Eosinophils 3.5 % (0-6); % Immature Granulocytes 0.5 % (0-0.5); % Lymphocytes 22.8 % (20.5-51.1); % Monocytes 14.2 % (1.7-9.3); % Neutrophils 58.3 % (42.2-75.2); Absolute Eosinophils 0.2 10^3/uL (0-0.7); Absolute Monocytes 0.6 10^3/uL (0.1-0.6); Absolute Neutrophils 2.5 10^3/uL (1.4-6.5); Hematocrit 39.7 % (39.0-52.0); Hemoglobin 13.5 g/dL (13.0-18.0); Mean Corpuscular Hgb 31.4 pg (27.0-31.0); Mean Corpuscular Volume 92.3 fL (80.0-94.0); Mean Platelet Volume 10.3 fL (7.4-10.4); Nucleated Red Blood Cells % 0 % (-); Platelet Count 149 10^3/uL (130-400); Red Cell Dist. Width 13.1 % (11.5-14.5); White Blood Cell Count 4.3 10^3/uL (4.8-10.8)
[2025-04-02 07:46] LABS: INR 1.73; PT 20.7 Sec (11.4-14.6)
[2025-04-02] MEDS: LOVENOX 100 MG SC (07:54)
[2025-04-02] MEDS: PROSCAR 5 MG PO (07:55)
[2025-04-02] MEDS: COREG 3.125 MG PO (07:55)
[2025-04-02] MEDS: ZETIA 10 MG PO (07:55)
[2025-04-02] MEDS: COZAAR 50 MG PO (07:55)
[2025-04-02] MEDS: PROTONIX 40 MG PO (07:55)
[2025-04-02] MEDS: SINEMET 25-100 1 TABLET PO (07:58)
[2025-04-02] MEDS: VIBRAMYCIN 100 MG PO (07:58)
[2025-04-02 08:24] LABS: ALT (SGPT) 19 U/L (0-50); AST (SGOT) 28 U/L (17-59); Albumin 3.4 g/dl (3.5-5.0); Alkaline Phosphatase 45 U/L (38-126); Blood Urea Nitrogen 16 mg/dl (9-20); Calcium 8.6 mg/dl (8.4-10.2); Carbon Dioxide 30 mmol/L (22-30); Chloride 110 mmol/L (98-107); Estimated Creatinine Clearance 90 ml/min; Glucose 102 mg/dl (70-99); Sodium 142 mmol/L (135-145); Total Bilirubin 0.7 mg/dl (0.2-1.3); Total Protein 5.8 g/dl (6.3-8.2); eGFR > 60.00
[2025-04-02] MEDS: NSS IV (10:53)
[2025-04-02 11:38] VITALS: BP 129/78
[2025-04-02 11:48] LABS: Glucose - Point of Care 102 mg/dl (70-99)
--- NOTE | 2025-04-02 12:08 | CM ---
Patient stable for d/c.
Patient will d/c to his brother's home
No CM needs identified at this time
Plan: D/c to brother's home
--- NOTE | 2025-04-04 07:45 | W.DCSUMMARY ---
Addendum entered and electronically signed by Yaron Hamilton MD 04/05/25 15:58:
Read, reviewed, and agree. See same day progress note for additional details.
Shakeel Hamilton MD
Original Note:
Documented by User: Anna Stewart MD, Resident 04/04/25 13:29
Discharge Summary
Discharge Data
Date of Admission: 04/01/25
Date of Discharge: 04/02/25
-
Pending Results: No
Hospital Course
Discharging Physician : Dr. Hamilton, Dr. Castillo
Disposition : Home
Principal Discharge diagnosis : TIA
Hospital Course : 69y M with PMH significant for hypertension, mechanical AVR and spinal stenosis who presents to ED for evaluation of ataxia. Patient was clumsy and had some slurred speech (noticed by his son), was moving backwards until he
hit the wall. No head strike, no loss of consciousness. In the ER�he was febrile�101.3, tachycardic, tachypneic, normal white count, x-ray evidence of pneumonia and right lower lobe, normal lactate. Renal function stable. He was started on
ceftriaxone and doxycycline for pneumonia. CT head, MRI brain�no evidence of acute infarct. Neurology on board. Recommended Sinemet 25/100 trial, retropulsion likely a symptom of Parkinson's. Patient has mechanical AVR, on Coumadin, echo�no
evidence of endocarditis. His INR has been monitored regularly. He was subtherapeutic and was started on Lovenox bridge�100 mg, SC, twice daily. Patient has clinically improved, hemodynamically stable to be discharged home after PT/OT evaluation.
Hypertension managed with losartan and Coreg, borderline DM�SSI. Hyperlipidemia�Zetia, GERD�Protonix.
New discharge medications�Sinemet 25/100,
cefdinir 300 mg, twice daily,
doxycycline�100 mg twice daily,
Lovenox 100 mg subcu twice daily. Based on his INR on the discharge day his Coumadin dose has been adjusted as�Cong, Sunday, , Sunday, Sunday�10 mg. Sunday, Sunday�7.5 mg. Advised to be followed up by primary care, get INR done
every day, once INR between 2�3, can stop taking Lovenox.
Important imaging findings :
CT head�03/31/2025� Some decreased attenuation in the periventricular deep white matter bilaterally, not consistent with patient age, possibly representing early senescent and/for small vessel related ischemic changes.
No findings to suggest acute intracranial hemorrhage.
Chest x-ray�04/01/2025�Focal parenchymal airspace opacity which is most likely within the right lower lobe. This likely represents pneumonia. No evidence for associated pleural effusion.
MRI brain�04/01/2025� No MRI evidence for an acute infarct.
Moderate to advanced bilateral cerebral white matter signal alteration. Differential considerations include chronic microangiopathic ischemia, demyelination, vasculitis, Lyme disease, or sequela of migraine headaches, among other etiologies.
Discharge Plan
-
Patient Disposition: Home (Routine Discharge)
Discharge Diagnosis/Procedures: Pneumonia, ataxia, mechanical AVR
Diet: Low Cholesterol and Low Sodium
Activity: No restrictions
Driving Restrictions: Not until seen by your Dr
Bathing Restrictions: OK to Shower
Referrals:
Alonzo Alfaro MD [Active, Neurology] - in two to four weeks
UNKNOWN - PT DOES,NOT KNOW [Family Provider]
Additional Discharge Medication Instructions: Take Lovenox, 100 mg twice daily every day. Continue to take warfarin as instructed below.
Sundays,Tuesdays,,Sunday, Sunday- take 2 tablets that equal 10mg.
Mondays, Wednesdays- take 1.5 tablets that equals 7.5mg
Check INR every day, follow-up with primary care for dose adjustment of warfarin. Stop Lovenox once INR between 2�3.
Prescriptions:
New
doxycycline hyclate 100 mg Capsule
100 mg PO Q12 Qty: 8 0RF
carbidopa-levodopa 25-100 mg Tablet
1 tab PO AC Qty: 30 0RF
enoxaparin 100 mg/mL Syringe
100 mg SC Q12H Qty: 15 0RF
cefdinir 300 mg capsule
300 mg PO BID Qty: 8 0RF
Continued
carvedilol 3.125 mg Tablet
3.125 mg PO BID
losartan-hydrochlorothiazide 100-25 mg Tablet
1 tab PO DAILY
pantoprazole [Protonix] 40 mg Tablet,Delayed Release (Dr/Ec)
40 mg PO DAILY
finasteride 5 mg Tablet
5 mg PO DAILY
ezetimibe 10 mg Tablet
10 mg PO DAILY
silodosin 8 mg Capsule
8 mg PO DAILY
omega 2-xcm-elu-fish oil [Fish Oil] 300-1,000 mg Capsule
1 cap PO DAILY
warfarin 5 mg Tablet
10 mg PO DAILY Qty: 0 0RF
Rx Instructions:
Sundays,Tuesdays,,Sunday, Sunday- take 2 tablets that equal 10mg.
Mondays, Wednesdays- take 1.5 tablets that equals 7.5mg
Discharge Orders:
Discharge Patient (As Directed); Ordered 04/02/25
Ordered By: Anna Stewart
Discharge Date and Time
Discharge Date/Time: 04/02/25 14:13
Print Language: CYMRO

Documented by User: Yaron Hamilton MD 04/05/25 15:58
Discharge Summary
Discharge Data
Date of Admission: 04/01/25
Date of Discharge: 04/05/25
Discharge Plan
-
Patient Disposition: Home (Routine Discharge)
Discharge Diagnosis/Procedures: Pneumonia, ataxia, mechanical AVR
Diet: Low Cholesterol and Low Sodium
Activity: No restrictions
Driving Restrictions: Not until seen by your Dr
Bathing Restrictions: OK to Shower
Referrals:
Alonzo Alfaro MD [Active, Neurology] - in two to four weeks
UNKNOWN - PT DOES,NOT KNOW [Family Provider]
Additional Discharge Medication Instructions: Take Lovenox, 100 mg twice daily every day. Continue to take warfarin as instructed below.
Sundays,Tuesdays,,Sunday, Sunday- take 2 tablets that equal 10mg.
Mondays, Wednesdays- take 1.5 tablets that equals 7.5mg
Check INR every day, follow-up with primary care for dose adjustment of warfarin. Stop Lovenox once INR between 2�3.
Prescriptions:
New
doxycycline hyclate 100 mg Capsule
100 mg PO Q12 Qty: 8 0RF
carbidopa-levodopa 25-100 mg Tablet
1 tab PO AC Qty: 30 0RF
enoxaparin 100 mg/mL Syringe
100 mg SC Q12H Qty: 15 0RF
cefdinir 300 mg capsule
300 mg PO BID Qty: 8 0RF
Continued
carvedilol 3.125 mg Tablet
3.125 mg PO BID
losartan-hydrochlorothiazide 100-25 mg Tablet
1 tab PO DAILY
pantoprazole [Protonix] 40 mg Tablet,Delayed Release (Dr/Ec)
40 mg PO DAILY
finasteride 5 mg Tablet
5 mg PO DAILY
ezetimibe 10 mg Tablet
10 mg PO DAILY
silodosin 8 mg Capsule
8 mg PO DAILY
omega 3-feo-jie-fish oil [Fish Oil] 300-1,000 mg Capsule
1 cap PO DAILY
warfarin 5 mg Tablet
10 mg PO DAILY Qty: 0 0RF
Rx Instructions:
Sundays,Tuesdays,,Sunday, Sunday- take 2 tablets that equal 10mg.
Mondays, Wednesdays- take 1.5 tablets that equals 7.5mg
Discharge Orders:
Discharge Patient (As Directed); Ordered 04/02/25
Ordered By: Anna Stewart
Discharge Date and Time
Discharge Date/Time: 04/02/25 14:13
Print Language: CYMRO
== END 2025-04-02 14:13 | disposition home or self-care (01) | DRG 871 ==
LOC: 4 WEST ACU 00:55
PROVIDERS: Student in an Organized Health Care Education/Training Program; ADMITTING PHYSICIAN Hospitalist; ATTENDING PHYSICIAN Family Medicine; CONSULT PHYSICIAN Psychiatry & Neurology Clinical Neurophysiology; EMERGENCY PHYSICIAN Student in an Organized Health Care Education/Training Program
DX: A41.9 Sepsis, unspecified organism (principal); I63.9 Cerebral infarction, unspecified; J18.9 Pneumonia, unspecified organism; Z95.2 Presence of prosthetic heart valve; Z79.01 Long term (current) use of anticoagulants; I11.9 Hypertensive heart disease without heart failure; R27.0 Ataxia, unspecified; E11.9 Type 2 diabetes mellitus without complications; K21.9 Gastro-esophageal reflux disease without esophagitis; E78.5 Hyperlipidemia, unspecified; M48.061 Spinal stenosis, lumbar region without neurogenic claudication; Z63.4 Disappearance and death of family member
CPT/HCPCS: 70450; 70551; 71046; 80048; 80053; 80061; 81003; 82962; 83036; 83605; 84145; 84443; 84484; 85025; 85027; 85610; 87040; 87502; 87811; 93005; 93306; 96360; 97162; 99285